=== PATIENT | female | born 1985 | race Caucasian/White ===

== ENCOUNTER 2024-06-30 14:21 | Observation (INO) | payer OTHER ==
--- NOTE | 2024-06-30 14:50 | ED ---
General Adult HPI - General Chief complaint: Alcohol Stated complaint: ETOH Source: patient, EMS, RN notes reviewed, old records reviewed Mode of arrival: EMS Limitations: no limitations - History of Present Illness Initial comments: This is a 38-year-old female who presents to the emergency department intoxicated. Patient states she went to [facility] for rehabilitation and they thought she took too many of her pills so they sent her in to be evaluated. Patient denies taking anything Boutt her own pills and she does not think she took too many. Denies any symptoms at all. Patient denies difficulty breathing or chest pain. Patient's palpitations are patient has abdominal pain patient has nausea vomiting or diarrhea. Patient has any recent fever chills - Related Data Home Medications Medication Instructions Recorded Confirmed Buprenorphine/Naloxone 8Mg/2Mg 1 film SL DAILY 06/30/24 06/30/24 [Suboxone 8-2Mg Film] Dextroamphetamine/Amphetamine 20 mg PO BID 06/30/24 06/30/24 [Adderall Xr 20 mg Capsule] Nicotine Polacrilex [Nicotine Gum] 4 mg BC Q2H PRN 06/30/24 06/30/24 chlordiazePOXIDE HCl [Librium] 25 mg PO DAILY PRN 06/30/24 06/30/24 Allergies Allergy/AdvReac Type Severity Reaction Status Date / Time No Known Allergies Allergy Verified 06/30/24 14:31 Review of Systems ROS Statement: Those systems with pertinent positive or pertinent negative responses have been documented in the HPI. ROS Other: All systems not noted in ROS Statement are negative. Past Medical History History of Any Multi-Drug Resistant Organisms: None Reported Past Psychological History: Unable to Obtain Smoking Status: Current every day smoker Past Alcohol Use History: Daily Past Drug Use History: Opiates, Prescription Drug Abuse General Exam - General Exam Comments Initial Comments: GENERAL: Patient is well-developed and well-nourished. Patient is nontoxic and well- hydrated and is in no acute distress. Patient appears to be intoxicated ENT: Neck is soft and supple. No significant lymphadenopathy is noted. Oropharynx is clear. Moist mucous membranes. Neck has full range of motion without eliciting any pain. EYES: The sclera were anicteric and conjunctiva were pink and moist. Extraocular movements were intact and pupils were equal round and reactive to light. Eyelids were unremarkable. PULMONARY: Unlabored respirations. Good breath sounds bilaterally. No audible rales rhonchi or wheezing was noted. CARDIOVASCULAR: There is a regular rate and rhythm without any murmurs gallops or rubs. ABDOMEN: Soft and nontender with normal bowel sounds. SKIN: Skin is clear with no lesions or rashes and otherwise unremarkable. NEUROLOGIC: Patient is alert and oriented x3. Cranial nerves II through XII are grossly intact. Motor and sensory are also intact. Normal speech, volume and content. Symmetrical smile. MUSCULOSKELETAL: Normal extremities with adequate strength and full range of motion. LYMPHATICS: No significant lymphadenopathy is noted PSYCHIATRIC: Normal psychiatric evaluation. Limitations: no limitations Course Vital Signs 06/30/24 06/30/24 14:25 17:00 Temperature 98.2 F Pulse Rate 92 88 Respiratory 18 18 Rate Blood Pressure 118/86 116/87 O2 Sat by Pulse 95 97 Oximetry Medical Decision Making - Medical Decision Making EKG is interpreted by myself. EKG shows a sinus rhythm at 81 bpm parables 162 QRS of 71 QT interval 377 QTc is 415. Patient's EKG shows no ST segment elevation or depression Was pt. sent in by a medical professional or institution (, PA, [employer], urgent care, hospital, or [facility]...) When possible be specific @ -[facility] sent this patient end Did you speak to anyone other than the patient for history (EMS, parent, family, police, friend...)? What history was obtained from this source @ -No Did you review nursing and triage notes (agree or disagree)? Why? @ -I reviewed and agree with nursing and triage notes Were old charts reviewed (outside hosp., previous admission, EMS record, old EKG, old radiological studies, urgent care reports/EKG's, [facility] records)? Report findings @ -No old charts were reviewed Differential Diagnosis? @ -Alcohol intoxication, drug abuse, overdose, this is not an all-inclusive list EKG interpreted by me (3pts min.). @ -As above X-rays interpreted by me (1pt min.). @ -None done CT interpreted by me (1pt min.). @ -None done U/S interpreted by me (1pt. min.). @ -None done What testing was considered but not performed or refused? (CT, X-rays, U/S, labs)? Why? @ -None What meds were considered but not given or refused? Why? @ -None Did you discuss the management of the patient with other professionals (professionals i.e. , PA, [employer], lab, RT, psych nurse, social welfare administrator, baby registry sales consultant, teacher, public relations officer, lining caser)? Give summary @ -I spoke with [facility] hospitalist and they agreed to admit the patien t Was smoking cessation discussed for >3mins.? @ -No Was critical care preformed (if so, how long)? @ -No Were there social determinants of health that impacted care today? How? (Homelessness, low income, unemployed, alcoholism, drug addiction, transportation, low edu. Level, literacy, decrease access to med. care, long-term, rehab)? @ -No Was there de-escalation of care discussed even if they declined (Discuss DNR or withdrawal of care, Hospice)? DNR status @ -No What co-morbidities impacted this encounter? (DM, HTN, Smoking, COPD, CAD, Cancer, CVA, ARF, Chemo, Hep., AIDS, mental health diagnosis, sleep apnea, morbid obesity)? @ -None Was patient admitted / discharged? Hospital course, mention meds given and route, prescriptions, significant lab abnormalities, going to OR and other pertinent info. @ -Patient was intoxicated and will be admitted to make sure the patient does not withdraw. Undiagnosed new problem with uncertain prognosis? @ -No Drug Therapy requiring intensive monitoring for toxicity (Heparin, Nitro, Insulin, Cardizem)? @ -No Were any procedures done? @ -No Diagnosis/symptom? @ -Alcohol intoxication Acute, or Chronic, or Acute on Chronic? @ -Acute Uncomplicated (without systemic symptoms) or Complicated (systemic symptoms)? @ -Complicated Side effects of treatment? @ -No Exacerbation, Progression, or Severe Exacerbation? @ -No Poses a threat to life or bodily function? How? (Chest pain, USA, ME, pneumonia, PE, COPD, DKA, ARF, appy, cholecystitis, CVA, Diverticulitis, Homicidal, Suicidal, threat to staff... and all critical care pts) @ -Yes this could lead to seizures or possible Diagnosis/symptom? @ -Polysubstance abuse Acute, or Chronic, or Acute on Chronic? @ -Default Uncomplicated (without systemic symptoms) or Complicated (systemic symptoms)? @ -Acute complicated Side effects of treatment? @ -None Exacerbation, Progression, or Severe Exacerbation] @ -No Poses a threat to life or bodily function? @ -No - Lab Data Result diagrams: 06/30/24 15:03 06/30/24 15:03 Lab Results 06/30/24 06/30/24 06/30/24 Range/Units 15:03 15:03 15:03 WBC 5.2 (3.8-10.6) k/uL RBC 3.98 (3.80-5.40) m/uL Hgb 12.5 (11.4-16.0) gm/dL Hct 37.8 (34.0-46.0) % MCV 95.0 (80.0-100.0) fL MCH 31.5 (25.0-35.0) pg MCHC 33.2 (31.0-37.0) g/dL RDW 11.4 L (11.5-15.5) % Plt Count 394 (150-450) k/uL MPV 6.8 Neutrophils % 47 % Lymphocytes % 42 % Monocytes % 4 % Eosinophils % 2 % Basophils % 1 % Neutrophils # 2.5 (1.3-7.7) k/uL Lymphocytes # 2.2 (1.0-4.8) k/uL Monocytes # 0.2 (0-1.0) k/uL Eosinophils # 0.1 (0-0.7) k/uL Basophils # 0.0 (0-0.2) k/uL Sodium (137-145) mmol/L Potassium (3.5-5.1) mmol/L Chloride (98-107) mmol/L Carbon Dioxide (22-30) mmol/L Anion Gap mmol/L BUN (7-17) mg/dL Creatinine (0.52-1.04) mg/dL Est GFR (CKD-EPI)AfAm (>60 ml/min/1.73 sqM) Est GFR (CKD-EPI)NonAf (>60 ml/min/1.73 sqM) Glucose (74-99) mg/dL Calcium (8.4-10.2) mg/dL Magnesium (1.6-2.3) mg/dL Total Bilirubin (0.2-1.3) mg/dL AST (14-36) U/L ALT (4-34) U/L Alkaline Phosphatase (38-126) U/L Total Protein (6.3-8.2) g/dL Albumin (3.5-5.0) g/dL Urine HCG, Qual Not Detected (Not Detectd) Salicylates mg/dL Urine Opiates Screen Not Detected (NotDetected) Ur Oxycodone Screen Not Detected (NotDetected) Urine Methadone Screen Not Detected (NotDetected) Acetaminophen ug/mL Ur Barbiturates Screen Not Detected (NotDetected) U Tricyclic Antidepress Not Detected (NotDetected) Ur Phencyclidine Scrn Not Detected (NotDetected) Ur Amphetamines Screen Detected H (NotDetected) U Methamphetamines Scrn Not Detected (NotDetected) U Benzodiazepines Scrn Detected H (NotDetected) Urine Cocaine Screen Not Detected (NotDetected) U Marijuana (THC) Screen Not Detected (NotDetected) Serum Alcohol mg/dL 06/30/24 Range/Units 15:03 WBC (3.8-10.6) k/uL RBC (3.80-5.40) m/uL Hgb (11.4-16.0) gm/dL Hct (34.0-46.0) % MCV (80.0-100.0) fL MCH (25.0-35.0) pg MCHC (31.0-37.0) g/dL RDW (11.5-15.5) % Plt Count (150-450) k/uL MPV Neutrophils % % Lymphocytes % % Monocytes % % Eosinophils % % Basophils % % Neutrophils # (1.3-7.7) k/uL Lymphocytes # (1.0-4.8) k/uL Monocytes # (0-1.0) k/uL Eosinophils # (0-0.7) k/uL Basophils # (0-0.2) k/uL Sodium 144 (137-145) mmol/L Potassium 4.0 (3.5-5.1) mmol/L Chloride 103 (98-107) mmol/L Carbon Dioxide 32 H (22-30) mmol/L Anion Gap 9 mmol/L BUN 11 (7-17) mg/dL Creatinine 0.74 (0.52-1.04) mg/dL Est GFR (CKD-EPI)AfAm >90 (>60 ml/min/1.73 sqM) Est GFR (CKD-EPI)NonAf >90 (>60 ml/min/1.73 sqM) Glucose 83 (74-99) mg/dL Calcium 9.7 (8.4-10.2) mg/dL Magnesium 1.9 (1.6-2.3) mg/dL Total Bilirubin 0.4 (0.2-1.3) mg/dL AST 46 H (14-36) U/L ALT 41 H (4-34) U/L Alkaline Phosphatase 96 (38-126) U/L Total Protein 7.1 (6.3-8.2) g/dL Albumin 4.2 (3.5-5.0) g/dL Urine HCG, Qual (Not Detectd) Salicylates <1.0 mg/dL Urine Opiates Screen (NotDetected) Ur Oxycodone Screen (NotDetected) Urine Methadone Screen (NotDetected) Acetaminophen <10.0 ug/mL Ur Barbiturates Screen (NotDetected) U Tricyclic Antidepress (NotDetected) Ur Phencyclidine Scrn (NotDetected) Ur Amphetamines Screen (NotDetected) U Methamphetamines Scrn (NotDetected) U Benzodiazepines Scrn (NotDetected) Urine Cocaine Screen (NotDetected) U Marijuana (THC) Screen (NotDetected) Serum Alcohol 281 H* mg/dL Disposition Clinical Impression: Alcoholic intoxication, Polysubstance abuse Disposition: ADMITTED IP TO THIS [facility] Referrals: None,Stated [Primary Care Provider] - 1-2 days Time of Disposition: 17:39
[2024-06-30 15:31] LABS: Basophils % (A) 1 %; Eosinophils # (A) 0.1 k/uL (0-0.7); Eosinophils % (A) 2 %; HCT 37.8 % (34.0-46.0); HGB 12.5 gm/dL (11.4-16.0); Lymphocytes # (A) 2.2 k/uL (1.0-4.8); Lymphocytes % (A) 42 %; MCH 31.5 pg (25.0-35.0); MCHC 33.2 g/dL (31.0-37.0); Mean Platelet Volume 6.8; Monocytes # (A) 0.2 k/uL (0-1.0); Monocytes % (A) 4 %; Neutrophils # (A) 2.5 k/uL (1.3-7.7); Neutrophils % (A) 47 %; Platelet Count 394 k/uL (150-450); RBC 3.98 m/uL (3.80-5.40); RDW 11.4 % (11.5-15.5); WBC 5.2 k/uL (3.8-10.6)
[2024-06-30 15:47] LABS: ALT 41 U/L (4-34); AST 46 U/L (14-36); Acetaminophen <10.0 ug/mL; African American GFR (CKD) >90 (>60 ml/min/1.73 sqM); Albumin 4.2 g/dL (3.5-5.0); Alkaline Phosphatase 96 U/L (38-126); Anion Gap 9 mmol/L; Blood Urea Nitrogen 11 mg/dL (7-17); Calcium 9.7 mg/dL (8.4-10.2); Carbon Dioxide 32 mmol/L (22-30); Chloride 103 mmol/L (98-107); Glucose 83 mg/dL (74-99); Magnesium 1.9 mg/dL (1.6-2.3); Non-African American GFR(CKD) >90 (>60 ml/min/1.73 sqM); Salicylate <1.0 mg/dL; Sodium 144 mmol/L (137-145); Total Bilirubin 0.4 mg/dL (0.2-1.3); Total Protein 7.1 g/dL (6.3-8.2)
[2024-06-30] MEDS: SODIUM CHLORIDE 0.9% 1,000 ML IV STA (15:54)
[2024-06-30 16:05] LABS: Alcohol 281 mg/dL
[2024-06-30 16:29] LABS: Amphetamine Screen,Urine Detected (NotDetected); Barbiturate Screen,Urine Not Detected (NotDetected); Benzodiazepines Screen,Urine Detected (NotDetected); Cocaine Screen,Urine Not Detected (NotDetected); Methadone Screen, Urine Not Detected (NotDetected); Opiate Screen,Urine Not Detected (NotDetected); Oxycodone Screen, Urine Not Detected (NotDetected); Phencyclidine Screen,Urine Not Detected (NotDetected); Tricyclic Antidepressant,Urine Not Detected (NotDetected); Urn Cannabinoid Scrn Not Detected (NotDetected)
[2024-06-30] MEDS ORDERED: LORazepam 1 MG TAB PO PRN ×4 (17:43)
[2024-06-30] MEDS: SODIUM CHLORIDE 0.9% 1,000 ML IV ONE (18:57)
[2024-07-01 01:44] VITALS: TEMP 98.6
[2024-07-01 08:00] VITALS: RESP 18
--- NOTE | 2024-07-01 10:53 | P.HPIM ---
History of Present Illness H&P Date: 07/01/24 This is a pleasant 38-year-old female with medical history significant for chronic alcoholism drinks about 1/5 of vodka per day as well as nicotine use, marijuana use and is currently on Suboxone and takes Adderall. Patient not have any other significant medical history. Patient was on her way for [place] intake when she got there they states that they thought that she had taken too many of her prescribed medications and sent her over to the hospital for further evaluation and medical clearance. Patient is evaluated today alert and oriented x 3 resting comfortably in the emergency room pending a bed on the medical floor. She reports that she did not take any of her pills states that she just had them on her as she was going over to [place] for intake. She states that she has been on Suboxone for quite a while and doing well with that. Her urine drug toxicology is positive for amphetamines and benzodiazepines. Her last drink was yesterday around 3 PM her blood alcohol level on admission was 281. She does not appear to be going through any active withdrawals and states that she has never gone through withdrawal before and does not feel like she will at this time. Blood work is essentially unremarkable her AST is 46, ALT is 41. Hemodynamically she is stable she is afebrile she is on room air heart rate is 74 normal sinus rhythm, pulse ox is 99%. Blood pressure 119/79. She had an EKG done which reveals normal sinus rhythm heart rate of [address] or T wave abnormalities. REVIEW OF SYSTEMS: CONSTITUTIONAL: No fever, no malaise, no fatigue. HEENT: No recent visual problems or hearing problems. Denied any sore throat. CARDIOVASCULAR: No chest pain, orthopnea, PND, no palpitations, no syncope. PULMONARY: No shortness of breath, no cough, no hemoptysis. GASTROINTESTINAL: No diarrhea, no nausea, no vomiting, no abdominal pain. NEUROLOGICAL: No headaches, no weakness, no numbness. HEMATOLOGICAL: Denies any bleeding or petechiae. GENITOURINARY: Denies any burning micturition, frequency, or urgency. MUSCULOSKELETAL/RHEUMATOLOGICAL: Denies any joint pain, swelling, or any muscle pain. ENDOCRINE: Denies any polyuria or polydipsia. The rest of the 14-point review of systems is negative. PHYSICAL EXAMINATION: GENERAL: The patient is alert and oriented x3, not in any acute distress. Well developed, well nourished. HEENT: Pupils are round and equally reacting to light. EOMI. No scleral icterus. No conjunctival pallor. Normocephalic, atraumatic. No pharyngeal erythema. No thyromegaly. CARDIOVASCULAR: S1 and S2 present. No murmurs, rubs, or gallops. PULMONARY: Chest is clear to auscultation, no wheezing or crackles. ABDOMEN: Soft, nontender, nondistended, normoactive bowel sounds. No palpable organomegaly. MUSCULOSKELETAL: No joint swelling or deformity. EXTREMITIES: No cyanosis, clubbing, or pedal edema. NEUROLOGICAL: Gross neurological examination did not reveal any focal deficits. SKIN: No rashes. Assessment and plan Acute alcohol intoxication and chronic alcoholism patient drinks 1/5 of vodka per day was started on Ativan IV CIWA protocol not required any overnight and feels like she will not withdrawal at this time she be going for intake at [facility] today medically she is stable. Prescription drug abuse maintained on Suboxone on an outpatient basis. ADD/ADHD prescribed Adderall Nicotine use patient vapes Occasional marijuana use Transaminitis likely alcoholic Patient is stable medically does not appear to be going through any acute alcohol withdrawal at this time is not required any IV Ativan. Patient is cleared medically for intake to [facility]. The impression and plan of care has been dictated by Shamika Simeon Nurse Practitioner as directed. Dr. Kacey MD I have performed a history and physical examination and medical decision making of this patient, discussed the same with the dictator, and agree with the dictators assessment and plan as written, documented as a scribe. Based on total visit time, I have performed more than 50% of this visit. Past Medical History Past Medical History: No Reported History History of Any Multi-Drug Resistant Organisms: None Reported Past Surgical History: No Surgical Hx Reported Past Psychological History: Unable to Obtain Smoking Status: Vaper Past Alcohol Use History: Daily Past Drug Use History: Prescription Drug Abuse Medications and Allergies Home Medications Medication Instructions Recorded Confirmed Type Buprenorphine/Naloxone 8Mg/2Mg 1 film SL DAILY 06/30/24 06/30/24 History [Suboxone 8-2Mg Film] Dextroamphetamine/Amphetamine 20 mg PO BID 06/30/24 06/30/24 History [Adderall Xr 20 mg Capsule] Nicotine Polacrilex [Nicotine Gum] 4 mg BC Q2H PRN 06/30/24 06/30/24 History chlordiazePOXIDE HCl [Librium] 25 mg PO DAILY PRN 06/30/24 06/30/24 History Allergies Allergy/AdvReac Type Severity Reaction Status Date / Time No Known Allergies Allergy Verified 06/30/24 14:31 Physical Exam Vitals: Vital Signs Temp Pulse Pulse Resp BP BP Pulse Ox 07/01/24 07:59 74 18 118/79 99 07/01/24 01:43 98.6 F 82 16 110/80 96 06/30/24 19:59 87 16 103/71 97 06/30/24 17:00 88 18 116/87 97 06/30/24 14:25 98.2 F 92 18 118/86 95 Intake and Output 06/30/24 07/01/24 07/01/24 22:59 06:59 14:59 Intake Total 120 1190 Balance 120 1190 Intake: Intake, IV Titration 600 Amount Sodium Chloride 0.9% 1, 600 000 ml @ 100 mls/hr IV . Q10H ONE Rx#:[id number] Oral 120 590 Other: # Voids 1 Weight 58.967 kg Results CBC & Chem 7: 06/30/24 15:03 06/30/24 15:03 Labs: Abnormal Lab Results - Last 24 Hours (Table) 06/30/24 06/30/24 06/30/24 Range/Units 15:03 15:03 15:03 RDW 11.4 L (11.5-15.5) % Carbon Dioxide 32 H (22-30) mmol/L AST 46 H (14-36) U/L ALT 41 H (4-34) U/L Ur Amphetamines Screen Detected H (NotDetected) U Benzodiazepines Scrn Detected H (NotDetected) Serum Alcohol 281 H* mg/dL Assessment and Plan Time with Patient: Less than 30
--- NOTE | 2024-07-01 10:56 | P.DS ---
Providers Date of admission: 06/30/24 17:43 Attending physician: Fina Villatoro Primary care physician: Stated None Hospital Course: Final Diagnosis Acute alcohol intoxication and chronic alcoholism patient drinks 1/5 of vodka per day was started on Ativan IV CIWA protocol not required any overnight and feels like she will not withdrawal at this time she be going for intake at [facility] today medically she is stable. Prescription drug abuse maintained on Suboxone on an outpatient basis. ADD/ADHD prescribed Adderall Nicotine use patient vapes Occasional marijuana use Transaminitis likely alcoholic Discharge Disposition Stable for discharge to [facility]. Hospital Course This is a pleasant 38-year-old female with medical history significant for chronic alcoholism drinks about 1/5 of vodka per day as well as nicotine use, marijuana use and is currently on Suboxone and takes Adderall. Patient not have any other significant medical history. Patient was on her way for [facility] intake when she got there they states that they thought that she had taken too many of her prescribed medications and sent her over to the hospital for further evaluation and medical clearance. Patient is evaluated today alert and oriented x 3 resting comfortably in the emergency room pending a bed on the medical floor. She reports that she did not take any of her pills states that she just had them on her as she was going over to [facility] for intake. She states that she has been on Suboxone for quite a while and doing well with that. Her urine drug toxicology is positive for amphetamines and benzodiazepines. Her last drink was yesterday around 3 PM her blood alcohol level on admission was 281. She does not appear to be going through any active withdrawals and states that she has never gone through withdrawal before and does not feel like she will at this time. Blood work is essentially unremarkable her AST is 46, ALT is 41. Hemodynamically she is stable she is afebrile she is on room air heart rate is 74 normal sinus rhythm, pulse ox is 99%. Blood pressure 119/79. She had an EKG done which reveals normal sinus rhythm heart rate of [address] or T wave abnormalities. Was monitored overnight medically she is doing well and she is currently stable for discharge to [facility]. Please see medication reconciliation for a list of current medications. Thank you for allowing us to participate in the care of this patient. The impression and plan of care has been dictated by Shamika Simeon, Nurse Practitioner as directed. Dr. Kacey MD I have performed a history and physical examination and medical decision making of this patient, discussed the same with the dictator, and agree with the dictators assessment and plan as written, documented as a scribe. Based on total visit time, I have performed more than 50% of this visit. Patient Condition at Discharge: Stable Plan - Discharge Summary Discharge Rx Participant: No New Discharge Prescriptions: Continue Buprenorphine/Naloxone 8Mg/2Mg [Suboxone 8-2Mg Film] 1 film SL DAILY Dextroamphetamine/Amphetamine [Adderall Xr 20 mg Capsule] 20 mg PO BID chlordiazePOXIDE HCl [Librium] 25 mg PO DAILY PRN PRN Reason: Anxiety/Alcohol Withdrawal Nicotine Polacrilex [Nicotine Gum] 4 mg BC Q2H PRN PRN Reason: Nicotine Cravings Discharge Medication List Buprenorphine/Naloxone 8Mg/2Mg [Suboxone 8-2Mg Film] 1 film SL DAILY 06/30/24 [History] Dextroamphetamine/Amphetamine [Adderall Xr 20 mg Capsule] 20 mg PO BID 06/30/24 [History] Nicotine Polacrilex [Nicotine Gum] 4 mg BC Q2H PRN 06/30/24 [History] chlordiazePOXIDE HCl [Librium] 25 mg PO DAILY PRN 06/30/24 [History] Follow up Appointment(s)/Referral(s): None,Stated [Primary Care Provider] - 1-2 days Activity/Diet/Wound Care/Special Instructions: Follow up with Dr. Azalia Parekh on discharge. OK for discharge to [facility] Discharge Disposition: OTHER INSTITUTION NOT DEFINED
[2024-07-01 13:11] VITALS: BP 98/68; PULSE 82
== END 2024-07-01 15:55 | disposition other institution (70) ==
LOC: EC 14:21 → 6NMEDSUR 17:43
PROVIDERS: ADMIT Hospitalist; ATTEND Hospitalist
DX: F10.229 Alcohol dependence with intoxication, unspecified (principal); F19.10 Other psychoactive substance abuse, uncomplicated; F90.9 Attention-deficit hyperactivity disorder, unspecified type; F12.90 Cannabis use, unspecified, uncomplicated; R74.01 Elevation of levels of liver transaminase levels; Y90.8 Blood alcohol level of 240 mg/100 ml or more; F17.290 Nicotine dependence, other tobacco product, uncomplicated; Z79.899 Other long term (current) drug therapy
CPT/HCPCS: 36415; 80053; 80143; 80179; 80306; 80320; 81025; 83735; 85025; 93005; 96360; 96361; 99285

== ENCOUNTER 2024-07-01 20:22 | Emergency (ER) | payer OTHER ==
[2024-07-01 21:40] VITALS: TEMP 98
[2024-07-02 01:13] LABS: Amphetamine Screen,Urine Detected (NotDetected); Barbiturate Screen,Urine Not Detected (NotDetected); Benzodiazepines Screen,Urine Detected (NotDetected); Cocaine Screen,Urine Not Detected (NotDetected); Methadone Screen, Urine Not Detected (NotDetected); Opiate Screen,Urine Not Detected (NotDetected); Oxycodone Screen, Urine Not Detected (NotDetected); Phencyclidine Screen,Urine Not Detected (NotDetected); Tricyclic Antidepressant,Urine Not Detected (NotDetected); Urn Cannabinoid Scrn Not Detected (NotDetected)
--- NOTE | 2024-07-02 04:45 | ED ---
Psych HPI - General Source: patient Mode of arrival: ambulatory <Jihan Kwong - Last Filed: 07/02/24 04:44> <Joselo Burgess - Last Filed: 07/02/24 10:23> - General Chief Complaint: Psychiatric Symptoms Stated Complaint: Mental Health Time Seen by Provider: 07/01/24 22:46 - History of Present Illness Initial Comments: 38-year-old female presenting for mental health evaluation. Patient is trying to get into [facility] and they are requiring her to have a mental health evaluation for admission. Patient denies any suicidal or homicidal ideation. She states that there was a misunderstanding with how many of her pills she had taken. No physical complaints at this time. (Jihan Kwong) - Related Data Home Medications Medication Instructions Recorded Confirmed Buprenorphine/Naloxone 8Mg/2Mg 1 film SL DAILY 06/30/24 06/30/24 [Suboxone 8-2Mg Film] Dextroamphetamine/Amphetamine 20 mg PO BID 06/30/24 06/30/24 [Adderall Xr 20 mg Capsule] Nicotine Polacrilex [Nicotine Gum] 4 mg BC Q2H PRN 06/30/24 06/30/24 chlordiazePOXIDE HCl [Librium] 25 mg PO DAILY PRN 06/30/24 06/30/24 Allergies Allergy/AdvReac Type Severity Reaction Status Date / Time No Known Allergies Allergy Verified 07/01/24 21:40 Review of Systems ROS Other: All systems not noted in ROS Statement are negative. <Jihan Kwong - Last Filed: 07/02/24 04:44> ROS Other: All systems not noted in ROS Statement are negative. <Joselo Burgess - Last Filed: 07/02/24 10:23> ROS Statement: Those systems with pertinent positive or pertinent negative responses have been documented in the HPI. Past Medical History Past Medical History: No Reported History History of Any Multi-Drug Resistant Organisms: None Reported Past Surgical History: No Surgical Hx Reported Past Psychological History: Unable to Obtain Smoking Status: Vaper Past Alcohol Use History: Abuse, Daily, Heavy Past Drug Use History: Prescription Drug Abuse <Jihan Kwong - Last Filed: 07/02/24 04:44> General Exam Limitations: no limitations General appearance: alert, in no apparent distress Head exam: Present: atraumatic, normocephalic Eye exam: Present: normal appearance, EOMI Neck exam: Present: normal inspection. Absent: meningismus Respiratory exam: Absent: respiratory distress Cardiovascular Exam: Present: regular rate Neurological exam: Present: alert, oriented X3 Psychiatric exam: Present: normal affect, normal mood. Absent: homicidal ideation, suicidal ideation Skin exam: Present: warm, dry <Jihan Kwong - Last Filed: 07/02/24 04:44> Course Vital Signs 07/01/24 07/02/24 07/02/24 21:38 05:24 09:53 Temperature 98 F Pulse Rate 98 92 85 Respiratory 18 16 16 Rate Blood Pressure 127/60 111/76 105/69 O2 Sat by Pulse 98 96 100 Oximetry Medical Decision Making <Jihan Kwong - Last Filed: 07/02/24 04:44> <Joselo Burgess - Last Filed: 07/02/24 10:23> - Medical Decision Making Was pt. sent in by a medical professional or institution (, PA, ADOPTION COORDINATOR, urgent care, hospital, or fdc...) When possible be specific @ -No Did you speak to anyone other than the patient for history (EMS, parent, family, police, friend...)? What history was obtained from this source @ -No Did you review nursing and triage notes (agree or disagree)? Why? @ -I reviewed and agree with nursing and triage notes Were old charts reviewed (outside hosp., previous admission, EMS record, old EKG, old radiological studies, urgent care reports/EKG's, fdc records)? Report findings @ -No old charts were reviewed Differential Diagnosis (chest pain, altered mental status, abdominal pain women, abdominal pain men, vaginal bleeding, weakness, fever, dyspnea, syncope, headache, dizziness, GI bleed, back pain, seizure, CVA, palpatations, mental health, musculoskeletal)? @ -Differential Mental Health Depression, anxiety, bipolar, psychosis, schizophrenia, borderline personality, situational depression, adjustment disorder, behavioral disorder, brain tumor, malingering, substance abuse, encephalopathy, medication reaction, dementia, hypothyroidism, degenerative neurologic disorder, lupus.... This is not meant to be all-inclusive list EKG interpreted by me (3pts min.). @ -As above X-rays interpreted by me (1pt min.). @ -None done CT interpreted by me (1pt min.). @ -None done U/S interpreted by me (1pt. min.). @ -None done What testing was considered but not performed or refused? (CT, X-rays, U/S, labs)? Why? @ -None What meds were considered but not given or refused? Why? @ -None Did you discuss the management of the patient with other professionals (professionals i.e. DrLuciano, PA, ADOPTION COORDINATOR, lab, RT, psych nurse, social worker palliative care, wallpaper scraper, teacher, transit authority police officer, case hardener)? Give summary @ -No Was smoking cessation discussed for >3mins.? @ -No Was critical care preformed (if so, how long)? @ -No Were there social determinants of health that impacted care today? How? ( Homelessness, low income, unemployed, alcoholism, drug addiction, transportation, low edu. Level, literacy, decrease access to med. care, detention, rehab)? @ -No Was there de-escalation of care discussed even if they declined (Discuss DNR or withdrawal of care, Hospice)? DNR status @ -No What co-morbidities impacted this encounter? (DM, HTN, Smoking, COPD, CAD, Cancer, CVA, ARF, Chemo, Hep., AIDS, mental health diagnosis, sleep apnea, morbid obesity)? @ -None Was patient admitted / discharged? Hospital course, mention meds given and route, prescriptions, significant lab abnormalities, going to OR and other pertinent info. @ -38-year-old female here for mental health evaluation for admission and to [facility] inpatient rehab. No suicidal or homicidal ideation. Patient is medically cleared and awaiting evaluation by EPS. (Jihan Kwong) Patient presented for mental health evaluation which was required for [facility] admission. She has no acute complaints at this time. Was medically cleared by previous provider. EPS evaluated the patient this morning and determined that she does not meet inpatient psychiatric criteria. Patient is psychiatrically cleared at this time. She will be discharged home with a safety plan. Diagnosis/symptom? @ -Encounter for psychiatric evaluation Acute, or Chronic, or Acute on Chronic? @ -Acute Uncomplicated (without systemic symptoms) or Complicated (systemic symptoms)? @ -Uncomplicated Side effects of treatment? @ -None Exacerbation, Progression, or Severe Exacerbation] @ -No Poses a threat to life or bodily function? @ -No (Joselo Burgess) - Lab Data Lab Results 07/02/24 Range/Units 00:45 Urine Opiates Screen Not Detected (NotDetected) Ur Oxycodone Screen Not Detected (NotDetected) Urine Methadone Screen Not Detected (NotDetected) Ur Barbiturates Screen Not Detected (NotDetected) U Tricyclic Antidepress Not Detected (NotDetected) Ur Phencyclidine Scrn Not Detected (NotDetected) Ur Amphetamines Screen Detected H (NotDetected) U Methamphetamines Scrn Not Detected (NotDetected) U Benzodiazepines Scrn Detected H (NotDetected) Urine Cocaine Screen Not Detected (NotDetected) U Marijuana (THC) Screen Not Detected (NotDetected) Disposition <Jihan Kwong - Last Filed: 07/02/24 04:44> Is patient prescribed a controlled substance at d/c from ED?: No Time of Disposition: 10:20 <Joselo Burgess - Last Filed: 07/02/24 10:23> Clinical Impression: Encounter for psychiatric assessment Disposition: HOME SELF-CARE Condition: Good Additional Instructions: follow safety plan Referrals: None,Stated [Primary Care Provider] - 1-2 days
[2024-07-02 05:25] VITALS: RESP 16
[2024-07-02 10:54] VITALS: BP 114/78; PULSE 96
== END 2024-07-02 11:27 | disposition home or self-care (01) ==
LOC: EC 20:22
DX: F99 Mental disorder, not otherwise specified
CPT/HCPCS: 80306; 82075; 99285